=== PATIENT | female | born 1950 | race Caucasian/White ===

== ENCOUNTER 2018-09-20 00:08 | Inpatient (IN) | payer OTHER, SELFPAY ==
[2018-09-20] VITALS (10 sets, daily range): BP systolic 117–141; BP diastolic 72–84; PULSE 85–104; RESP 16–18; TEMP 36.2–37.1; O2SAT 94–98; BMI 32.5
--- NOTE | 2018-09-20 00:29 | DI.RAD.S_ITS ---
PROCEDURE: XR CHEST 1V INDICATIONS: NGT placement, bowel obstruction TECHNIQUE: One view of the chest was acquired. COMPARISON: None. FINDINGS: Surgical changes and devices: Esophagogastric tube has been placed with its tip just below the EG junction and its side port above the EG junction. Lungs and pleura: Lungs are clear. No pleural effusions or pneumothorax. Mediastinum: Mediastinal contours appear normal. Heart size is normal. Bones and chest wall: No suspicious bony lesions. Overlying soft tissues appear unremarkable. IMPRESSION: Esophagogastric tube is relatively high in its positioning with the side port above the EG junction. Recommend advancing approximately 10 cm. Dictated by: Malcolm Olmstead M.D. on 09/20/2018 at 8:51 Approved by: Malcolm Olmstead M.D. on 09/20/2018 at 8:52
[2018-09-20 00:54] LABS: Add Manual Diff / Slide Review NO; Basophils Absolute Auto 0 /uL (0-100); Basophils Percent Auto 0.2 % (0-2); Eosinophils Absolute Auto 0 /uL (0-450); Hemoglobin 13.9 g/dL (12.0-16.0); Lymphocytes Absolute Auto 1000 /uL (1100-4500); Lymphocytes Percent Auto 9.4 % (25-40); Mean Corpuscular HGB Conc 33.1 % (30-36); Mean Corpuscular Hemoglobin 27.9 PG (26-34); Mean Corpuscular Volume 84.5 fL (80-100); Monocytes Absolute Auto 400 /uL (0-900); Monocytes Percent Auto 3.8 % (3-14); Neutrophils Absolute Auto 9300 /uL (1500-7000); Neutrophils Percent Auto 86.6 % (50-75); Platelet Count 221 X10^3/uL (150-400); Red Blood Cell Count 4.97 X10^6/uL (4.0-5.2); Red Cell Distribution Width 14.5 % (11.6-14.8); White Blood Cell Count 10.8 X10^3/uL (4.5-11.0)
[2018-09-20] MEDS: SODIUM CHLORIDE 0.9% 1,000 ML 125 ML IV ×3 (01:00→16:12)
[2018-09-20 01:03] LABS: Alanine Aminotransferase 14 IU/L (9-52); Albumin 3.9 g/dL (3.5-5.0); Albumin Globulin Ratio 1.3 (1.0-2.8); Alkaline Phosphatase 78 U/L (38-126); Aspartate Aminotransferase 22 IU/L (14-36); BUN Creatinine Ratio 23.3 (6-22); Bilirubin Total 0.5 mg/dL (0.2-1.3); Blood Urea Nitrogen 14 mg/dL (7-17); Calcium 8.8 mg/dL (8.4-10.2); Carbon Dioxide 27 mmol/L (22-32); Chloride 105 mmol/L (98-107); Estimated Glomerular Filt Rate > 60.0 mL/min (>60); Globulin 3.1 g/dL (1.7-4.1); Glucose 140 mg/dL (80-110); HEMOLYSIS < 15 (0-50); Potassium 4.1 mmol/L (3.4-5.1); Sodium 140 mmol/L (137-145)
--- NOTE | 2018-09-20 01:04 | DI.ECHO.S_ITS ---
[facility] +---------+ : : [address] : : : : [id number] : : : : Phone: [phone] Echocardiogram Report + + :Name: DARIEN MARTINEZ Study Date: 09/20/2018 Height: 61 in : :[facility] Exam Location: [place] Weight: 165 lb : : Gender: Female BSA: 1.7 m2 : :: 1950 Age: 68 yrs BP: 140/80 mmHg: :Reason For Study: Exertional chest pressure and dyspnea : :Ordering Physician: Perry : :Hospitalist Performed By: Margy Page : :Referring: LUCA DAVIS : + + Interpretation Summary Normal sinus rhythm. Normal LV size, wall thickness, wall motion and LV systolic function. EF is 60-65%. Severe LA enlargement; otherwise normal chamber sizes. No significant valvular abnormalities. No prior study available for comparison. Procedure: A two-dimensional transthoracic echocardiogram with color flow and Doppler was performed. The study quality was technically adequate. There is no prior echocardiogram noted for this patient. The heart rate was 89-99 with frequent abnormal beats. Left Ventricle: The left ventricle is mildly dilated. Left ventricular wall thickness is normal. The ejection fraction is estimated to be 60-65%. The left ventricle is mildly hyperdynamic. There are no focal wall motion abnormalities. Diastolic function could not be accurately assessed due to unobtainable data. Right Ventricle: The right ventricle is mildly dilated. The right ventricular systolic function is normal. Atria: The left atrium is severely dilated. Right atrial size is normal. There is no Doppler evidence for an interatrial shunt. Mitral Valve: The mitral valve is normal in structure and function. There is mild mitral regurgitation. Aortic Valve: The aortic valve is trileaflet. The aortic valve opens well. No aortic regurgitation is present. Tricuspid Valve: The tricuspid valve is normal in structure and function. There is trace tricuspid regurgitation. The right ventricular systolic pressure is estimated to be at least 27 mmHg based on an estimated right atrial pressure of 8 mm Hg. Pulmonic Valve: The pulmonic valve is not well visualized. There is trace pulmonic regurgitation. Great Vessels: The aortic root is normal size. The ascending aorta is at the upper limits of normal in size. The pulmonary artery is not well visualized, but is probably normal size. The IVC is of normal diameter and collapses less than 50% with a sniff. This suggests a right atrial pressure of 8 mm Hg. Pericardium/ Pleura There is no pericardial effusion. There is no pleural effusion. MMode/2D Measurements & Calculations LVIDd: 5.2 cm LVOT diam: 2.2 cm LVIDs: 4.6 cm Ao root diam: 3.2 cm FS: 12.5 % asc Aorta Diam: 3.4 cm EPSS: 1.1 cm IVSd: 0.72 cm LVPWd: 0.60 cm LV naidu. diameter/BSA (cm/m^2): 3.0 LV sys. diameter/BSA (cm/m^2): 2.6 LA A2 area: 23.9 cm2 RA long axis: 5.2 cm LA A4 area: 26.6 cm2 RA area: 15.5 cm2 LA length (vol): 6.2 cm RA vol: 39.4 ml LA vol: 87.0 ml RA : 22.6 ml/m2 LA vol index: 50.0 ml/m2 IVC diam: 1.8 cm RVD1 (basal): 4.4 cm RVD2 (mid): 3.7 cm TAPSE: 2.3 cm Doppler Measurements & Calculations Ao V2 max: 148.1 cm/sec LVOT Max Juan Pablo: 92.7 cm/sec Ao V2 mean: 98.3 cm/sec LV V1 max P.4 mmHg Ao max P.8 mmHg LV V1 VTI: 15.8 cm Ao mean P.3 mmHg QI(I,D): 2.2 cm2 Ao V2 VTI: 26.5 cm QI(V,D): 2.4 cm2 sev ratio: 0.60 QI indexed to BSA (cm^2/m^2): 1.3 MV E max juan pablo: 68.7 cm/sec TR max juan pablo: 220.1 cm/sec MV A max juan pablo: 93.3 cm/sec TR max P.4 mmHg MV E/A: 0.74 PA V2 max: 83.4 cm/sec Lat Peak E' Juan Pablo: 14.4 cm/sec PA V2 mean: 60.1 cm/sec E/E' lat: 4.8 PA mean P.6 mmHg MV P1/2t: 36.5 msec PA Accel Time: 0.10 sec MV P1/2t max juan pablo: 69.4 cm/sec SV(LVOT): 59.6 ml MVA(P1/2t): 6.0 cm2 Electronically signed by: Shira Howard M.D. on Reading Physician:09/20/2018 11:12 AM
[2018-09-20 01:24] LABS: Troponin I < 0.012 ng/mL (0.01-0.034)
[2018-09-20] MEDS: ONDANSETRON 4 MG/2 ML INJ IV (02:25)
[2018-09-20] MEDS: HYDROMORPHONE 0.5 MG INJ IV ×2 (02:25→11:40)
--- NOTE | 2018-09-20 02:59 | PM.HP.1 ---
History of Present Illness Date Patient Seen: 09/20/18 Time Patient Seen: 00:30 Chief complaint: Small Bowel Obstruction Narrative: Ms. Stephani Pearson is a 60-year-old female patient with history significant for left nephrectomy hysterectomy and lumbosacral degenerative disc disease who presented to [facility] and [place] with progressive nausea vomiting. The patient reports developing nausea and vomiting the afternoon of 09/19/2018 that became progressively worse. She attributed her distress to the broccoli she ate and has been unable to keep down any food or fluids. She has developed mild abdominal pain with bloating and fullness. She describes the pain as a dull ache and pressure that is crampy at times. She reports taking MiraLax without benefit. She reports over the last 2 days she has had very small bowel movement and none today. She reports no hematemesis melena rectal bleeding. The patient reports no recent illness and denies fevers or chills, headaches or dizziness, nasal congestion or sore throat. She does endorse having multiple episodes of chest pressure when walking up hill with shortness of breath but none with normal activity that has developed over the last few weeks. She denies peripheral edema or orthopnea and otherwise has no shortness of breath cough or wheezing. Until today she has had no recent abdominal pain and no complaints of constipation or diarrhea. She reports no dysuria or vaginal bleeding or discharge. The patient was seen at [facility] emergency department of [place], upon arrival the patient had a blood pressure 134/90 with normal terminal with a temperature 37.1?, heart rate of 110, respirations of 18 and oxygen saturation 95%. Given the clinic included a CT scan which found, fluid dilated and fecalized proximal small bowel loops with abrupt transition point in the anterior left abdomen at the level of the umbilicus. Lab work obtained found white count of 9.5, hemoglobin of 15 and hematocrit of 45.8 and platelets of 230. With complaint of chest pressure on exertion a troponin was checked and found to be negative at less than 0.010. On chemistries her electrolytes within normal limits and had a nonfasting glucose 142. She has preserved renal function with a BUN of 17 and creatinine of 0.7. Her LFTs are within normal limits. And lipase is 27. Twelve lead EKG was obtained which found a normal sinus rhythm with a bifascicular block with right bundle branch block and left anterior fascicular block. She has no ST-elevation however there is inverted T-waves in V1 [address] Du called requesting to transfer the patient to [facility] as they have no surgical services. The patient is accepted with surgical consult for which Dr. Du spoke with Dr. Toribio the concrete vault maker surgeon who agreed to consult and agreed with transfer. The patient was given Reglan at the sending facility without benefit, she received Zofran during transport with marked improvement in her nausea. Patient History Medical History Blind left eye (Acute) DDD (degenerative disc disease), lumbosacral (Acute) Rosacea (Acute) Surgical History (Updated 09/20/18 @ 03:48 by LUIS Burdick) History of (Acute) History of hysterectomy (Acute) History of right radical nephrectomy (Acute) History of total right hip arthroplasty (Acute) Family History Father Alzheimer's dementia Mother Cancer Brother In good health Social History household members: friend(s) Smoking Status: Never smoker Family & Social History Family History Father Alzheimer's dementia Mother Cancer Brother In good health Social History: household members friend(s) Safety & Behavioral: Feels Safe in Current Yes Environment Been Physically Hurt or No Threatened By a Person Suicidal Ideation Description None Tobacco & Substance use: Smoking Status Never smoker alcohol intake frequency a few times a month Substance Use Type does not use Comment: The patient is single and lives with friends [place] [address]. Her parents are both and she has 2 brothers in good health. Smoking: Patient is a former smoking having smoked on and off 1/4 pack per day for 17 years. Alcohol: Patient consumes occasional alcohol. Substance use: Patient denies recreation pharmaceuticals herbal or use of cannabis products. Advanced directives direct discussion with the patient she wishes to be FULL CODE. She designates to be her surrogate decision maker. Meds Home Medications Medication Instructions Recorded Confirmed Type No Known Home Medications 09/20/18 09/20/18 History Allergies Allergy/AdvReac Type Severity Reaction Status Date / Time morphine AdvReac Mild JITTERY Verified 09/20/18 02:07 Review of Systems Review of Systems All systems reviewed & are unremarkable except as noted in HPI and below Exam Vital Signs (past 8 hours): - 09/20/18 00:15 09/20/18 02:00 Temperature 97.2 F L Pulse Rate 96 H Respiratory Rate 18 Blood Pressure 140/80 Pulse Oximetry 98 98 Oxygen Delivery Method Room Air Oxygen Flow Rate 0 Narrative Exam Narrative: GENERAL APPEARANCE: well developed, well nourished, in no acute distress. HEAD: Normocephalic, atraumatic, no scalp lesions. EYES: Blind left eye, dysconjugate gaze, pupils equal, round, reactive to light and accommodation, sclera non-icteric, unequal extraocular movement intact without nystagmus. EARS: normal external structures, no ear pain NOSE: NG to placed and right nare, sinuses non tender to percussion, no rhinorrhea ORAL CAVITY: mucosa moist without lesions or exudate, palate normal, tongue in midline. THROAT: normal, no erythema, no exudate, pharynx normal, uvula midline. NECK/THYROID: neck supple, no jugular venous distention, no carotid bruit, no thyromegaly, trachea midline. LYMPH NODES: no cervical or supraclavicular lymphadenopathy. SKIN: warm and dry, no suspicious lesions, no rashes, good turgor. HEART: regular rate and rhythm, S1-S2 without murmur, no rubs or gallops, brisk capillary refill, no edema LUNGS: clear to auscultation bilaterally, no coarseness crackles or wheezing, no cough present CHEST: Symmetrical movement, good tidal volume, no accessory muscle use, no pain to AP and lateral compression. ABDOMEN: Well-healed left abdominal surgical scar, soft, tympanic to percussion left upper quadrant dull in other quadrants, lower abdominal tenderness on palpation, no guarding or peritoneal signs, no organomegaly, no epigastric, flank or suprapubic tenderness, active bowel tones, no abdominal pain with straight leg lift BACK: nontender to palpation EXTREMITIES: moves all extremities, strength is 5/5 and symmetrical, no deformities or joint effusions. NEUROLOGIC: AAO x4, no focal neurologic deficits, cranial nerves II-XII grossly intact , motor strength normal upper and lower extremities, sensory exam intact to light touch, hearing grossly normal to speech. PSYCH: alert, cognitive function intact, good eye contact, appropriate with stable behavior Objective Labs Result Diagrams: 09/20/18 00:40 09/20/18 00:40 Labs: Laboratory Results - last 24 hr 09/20/18 09/20/18 09/20/18 00:40 00:40 00:40 WBC 10.8 RBC 4.97 Hgb 13.9 Hct 42.0 MCV 84.5 MCH 27.9 MCHC 33.1 RDW 14.5 Plt Count 221 Neut % (Auto) 86.6 H Lymph % (Auto) 9.4 L Vigo % (Auto) 3.8 Eos % (Auto) 0.0 L Baso % (Auto) 0.2 Neut # (Auto) 9300 H Lymph # (Auto) 1000 L Vigo # (Auto) 400 Eos # (Auto) 0 Baso # (Auto) 0 Sodium 140 Potassium 4.1 Chloride 105 Carbon Dioxide 27 BUN 14 Creatinine 0.60 Estimated GFR > 60.0 BUN/Creatinine Ratio 23.3 H Glucose 140 H Calcium 8.8 Total Bilirubin 0.5 AST 22 ALT 14 Alkaline Phosphatase 78 Troponin I < 0.012 Total Protein 7.0 Albumin 3.9 Globulin 3.1 Albumin/Globulin Ratio 1.3 Assessment & Plan Assessment & Plan narrative: The patient is transferred to [facility] from [facility] emergency department at Tuesday with small-bowel obstruction. 1. Acute small-bowel obstruction, present on admission. -patient with nausea vomiting today becoming progressively worse developing abdominal pain and bloating. -abdominal CT obtained at [facility] finds small-bowel obstruction with abrupt transition point in the anterior left abdomen at the level of the umbilicus. The CT also identifies distal colonic diverticulosis moderate in severity of the sigmoid and small hiatal hernia. -patient is NPO with normal saline infusing at 125 cc/hour -will monitor renal function as the patient has a single kidney status post nephrectomy. -Zofran 4 mg every 6 hours as needed for nausea -Dilaudid 0.5 mg every 4 hours as needed for pain. -NG tube to low intermittent suction. -we appreciate Dr. Helm surgical consult. 2. Acute chest discomfort, active -the patient's chest pressure develops in association with exertional dyspnea as stated when she does a strenuous walk uphill. -patient acknowledges difficulty going up stairs both related to her hip as well as dyspnea. -Twelve lead EKG finds bifascicular block and inverted T-waves in V1 2 and 3. -troponin at [facility] is negative will obtain repeat troponin -12 lead EKG and echocardiogram in the morning. -patient will need cardiac workup with stress test in absence of chest pain or significant findings may be followed up on outpatient basis. - Time Spent With Patient Time with patient: 25 - 35 minutes Scores GCS Continental coma scale eye opening: Spontaneous Dee coma scale verbal response: Orientated Dee coma scale motor response: Obey commands Dee coma scale total score: 15 Quality VTE Deep Vein Thrombosis/Pulmonary Embolism Present on Admission: No
--- NOTE | 2018-09-20 04:06 | PC.NURSE ---
Admit note NOC shift: Pt admitted via [facility] from [facility] Tuesday for an acute SBO secondary to adhesions. Pt AAOX3, received Zofran in flight for nausea, denies pain on admit. NG in place left nares will check KUB per xray. VSS. Pt NPO IVF's started. Ambulatory w/SBA to bathroom. Bernard BALP in to assess pt. Surgical consult in AM. NG placed to LIS per xray confirmed placement, ABD mildly distended w/hypoactive BT's. Denies nausea at this time.
[2018-09-20 06:04] LABS: Add Manual Diff / Slide Review NO; Basophils Absolute Auto 0 /uL (0-100); Basophils Percent Auto 0.1 % (0-2); Eosinophils Absolute Auto 0 /uL (0-450); Eosinophils Percent Auto 0.1 % (2-4); Hematocrit 41.4 % (36-46); Hemoglobin 13.7 g/dL (12.0-16.0); Lymphocytes Absolute Auto 1300 /uL (1100-4500); Lymphocytes Percent Auto 13.1 % (25-40); Mean Corpuscular HGB Conc 33.1 % (30-36); Mean Corpuscular Volume 84.8 fL (80-100); Monocytes Absolute Auto 500 /uL (0-900); Monocytes Percent Auto 5.3 % (3-14); Neutrophils Absolute Auto 8000 /uL (1500-7000); Neutrophils Percent Auto 81.4 % (50-75); Platelet Count 218 X10^3/uL (150-400); Red Blood Cell Count 4.88 X10^6/uL (4.0-5.2); Red Cell Distribution Width 14.5 % (11.6-14.8); White Blood Cell Count 9.8 X10^3/uL (4.5-11.0)
--- NOTE | 2018-09-20 10:29 | PM.PN.1 ---
Subjective Date Patient Seen: 09/20/18 Interval history: Patient is a 68-year-old female in prior good health admitted due to acute small bowel obstruction. She denies nausea, vomiting or worsening abdominal pain since admit overnight. Denies flatus. NG tube was placed but without drainage. Exam Vital Signs (past 8 hours): - 09/20/18 05:15 09/20/18 08:00 Temperature 98.3 F 98.2 F Pulse Rate 104 H 91 H Respiratory Rate 17 18 Blood Pressure 130/74 117/72 Pulse Oximetry 94 95 Oxygen Delivery Method Room Air Oxygen Flow Rate 0 Narrative Exam Narrative: GENERAL: Alert pleasant female in no acute distress HEENT: Normocephalic atraumatic CHEST: Clear to auscultation bilaterally. CARDIAC: Regular rate and rhythm. ABDOMEN: Mildly distended, bowel sounds present, soft and nontender EXTREMITIES: no edema. NEUROLOGICAL: no focal findings SKIN: Warm, dry, no petechiae, no rash Objective Labs Result Diagrams: 09/20/18 05:25 09/20/18 00:40 Labs: Laboratory Results - last 24 hr 09/20/18 09/20/18 09/20/18 00:40 00:40 00:40 WBC 10.8 RBC 4.97 Hgb 13.9 Hct 42.0 MCV 84.5 MCH 27.9 MCHC 33.1 RDW 14.5 Plt Count 221 Neut % (Auto) 86.6 H Lymph % (Auto) 9.4 L Ramsey % (Auto) 3.8 Eos % (Auto) 0.0 L Baso % (Auto) 0.2 Neut # (Auto) 9300 H Lymph # (Auto) 1000 L Ramsey # (Auto) 400 Eos # (Auto) 0 Baso # (Auto) 0 Sodium 140 Potassium 4.1 Chloride 105 Carbon Dioxide 27 BUN 14 Creatinine 0.60 Estimated GFR > 60.0 BUN/Creatinine Ratio 23.3 H Glucose 140 H Calcium 8.8 Total Bilirubin 0.5 AST 22 ALT 14 Alkaline Phosphatase 78 Troponin I < 0.012 Total Protein 7.0 Albumin 3.9 Globulin 3.1 Albumin/Globulin Ratio 1.3 09/20/18 05:25 WBC 9.8 RBC 4.88 Hgb 13.7 Hct 41.4 MCV 84.8 MCH 28.0 MCHC 33.1 RDW 14.5 Plt Count 218 Neut % (Auto) 81.4 H Lymph % (Auto) 13.1 L Ramsey % (Auto) 5.3 Eos % (Auto) 0.1 L Baso % (Auto) 0.1 Neut # (Auto) 8000 H Lymph # (Auto) 1300 Ramsey # (Auto) 500 Eos # (Auto) 0 Baso # (Auto) 0 Sodium Potassium Chloride Carbon Dioxide BUN Creatinine Estimated GFR BUN/Creatinine Ratio Glucose Calcium Total Bilirubin AST ALT Alkaline Phosphatase Troponin I Total Protein Albumin Globulin Albumin/Globulin Ratio Assessment & Plan Assessment & Plan narrative: The patient is transferred to [facility] from [facility] emergency department at [place] with small-bowel obstruction. 1. Acute small-bowel obstruction, likely due to adhesion, present on admission. -patient with stable vitals and laboratories -abdominal CT obtained at [facility] finds small-bowel obstruction with abrupt transition point in the anterior left abdomen at the level of the umbilicus. The CT also identifies distal colonic diverticulosis moderate in severity of the sigmoid and small hiatal hernia. -patient is NPO with normal saline infusing at 125 cc/hour -will monitor renal function as the patient has a single kidney status post nephrectomy. -Zofran 4 mg every 6 hours as needed for nausea -Dilaudid 0.5 mg every 4 hours as needed for pain. -NG tube to low intermittent suction, however can possibly remove if no drainage. -we appreciate Dr. Helm surgical consult. 2. Acute chest discomfort, active -patient reported 2 week history of a couple episodes of chest discomfort with exertion when she does a strenuous walk uphill. -patient acknowledges difficulty going up stairs both related to her hip as well as dyspnea. -no significant CAD risk factors such as family history, diabetes, hypertension, smoking (quit 30-40 years ago) -Twelve lead EKG finds bifascicular block and inverted T-waves in V1 2 and 3. -troponin at [facility] and here both negative -transthoracic echo ordered -patient will need outpatient cardiac workup with stress test -patient will need preop cardiac consultation if she requires surgery during this admission Continue inpatient management of acute small-bowel obstruction Quality VTE Deep Vein Thrombosis/Pulmonary Embolism Present on Admission: No
--- NOTE | 2018-09-20 10:36 | P.PN_ITS ---
Subjective Date Patient Seen: 09/20/18 Interval history: Patient is a 68-year-old female in prior good health admitted due to acute small bowel obstruction. She denies nausea, vomiting or worsening abdominal pain since admit overnight. Denies flatus. NG tube was placed but without drainage. Exam Vital Signs (past 8 hours): - 09/20/18 05:15 09/20/18 08:00 Temperature 98.3 F 98.2 F Pulse Rate 104 H 91 H Respiratory Rate 17 18 Blood Pressure 130/74 117/72 Pulse Oximetry 94 95 Oxygen Delivery Method Room Air Oxygen Flow Rate 0 Narrative Exam Narrative: GENERAL: Alert pleasant female in no acute distress HEENT: Normocephalic atraumatic CHEST: Clear to auscultation bilaterally. CARDIAC: Regular rate and rhythm. ABDOMEN: Mildly distended, bowel sounds present, soft and nontender EXTREMITIES: no edema. NEUROLOGICAL: no focal findings SKIN: Warm, dry, no petechiae, no rash Objective Labs Result Diagrams: 09/20/18 05:25 09/20/18 00:40 Labs: Laboratory Results - last 24 hr 09/20/18 09/20/18 09/20/18 00:40 00:40 00:40 WBC 10.8 RBC 4.97 Hgb 13.9 Hct 42.0 MCV 84.5 MCH 27.9 MCHC 33.1 RDW 14.5 Plt Count 221 Neut % (Auto) 86.6 H Lymph % (Auto) 9.4 L Carroll % (Auto) 3.8 Eos % (Auto) 0.0 L Baso % (Auto) 0.2 Neut # (Auto) 9300 H Lymph # (Auto) 1000 L Carroll # (Auto) 400 Eos # (Auto) 0 Baso # (Auto) 0 Sodium 140 Potassium 4.1 Chloride 105 Carbon Dioxide 27 BUN 14 Creatinine 0.60 Estimated GFR > 60.0 BUN/Creatinine Ratio 23.3 H Glucose 140 H Calcium 8.8 Total Bilirubin 0.5 AST 22 ALT 14 Alkaline Phosphatase 78 Troponin I < 0.012 Total Protein 7.0 Albumin 3.9 Globulin 3.1 Albumin/Globulin Ratio 1.3 09/20/18 05:25 WBC 9.8 RBC 4.88 Hgb 13.7 Hct 41.4 MCV 84.8 MCH 28.0 MCHC 33.1 RDW 14.5 Plt Count 218 Neut % (Auto) 81.4 H Lymph % (Auto) 13.1 L Carroll % (Auto) 5.3 Eos % (Auto) 0.1 L Baso % (Auto) 0.1 Neut # (Auto) 8000 H Lymph # (Auto) 1300 Carroll # (Auto) 500 Eos # (Auto) 0 Baso # (Auto) 0 Sodium Potassium Chloride Carbon Dioxide BUN Creatinine Estimated GFR BUN/Creatinine Ratio Glucose Calcium Total Bilirubin AST ALT Alkaline Phosphatase Troponin I Total Protein Albumin Globulin Albumin/Globulin Ratio Assessment & Plan Assessment & Plan narrative: The patient is transferred to [facility] from [facility] emergency department at [place] with small-bowel obstruction. 1. Acute small-bowel obstruction, likely due to adhesion, present on admission. -patient with stable vitals and laboratories -abdominal CT obtained at [facility] finds small-bowel obstruction with abrupt transition point in the anterior left abdomen at the level of the umbilicus. The CT also identifies distal colonic diverticulosis moderate in severity of the sigmoid and small hiatal hernia. -patient is NPO with normal saline infusing at 125 cc/hour -will monitor renal function as the patient has a single kidney status post nephrectomy. -Zofran 4 mg every 6 hours as needed for nausea -Dilaudid 0.5 mg every 4 hours as needed for pain. -NG tube to low intermittent suction, however can possibly remove if no dra mckenna. -we appreciate Dr. Helm surgical consult. 2. Acute chest discomfort, active -patient reported 2 week history of a couple episodes of chest discomfort with exertion when she does a strenuous walk uphill. -patient acknowledges difficulty going up stairs both related to her hip as well as dyspnea. -no significant CAD risk factors such as family history, diabetes, hypertension, smoking (quit 30-40 years ago) -Twelve lead EKG finds bifascicular block and inverted T-waves in V1 2 and 3. -troponin at [facility] and here both negative -transthoracic echo ordered -patient will need outpatient cardiac workup with stress test -patient will need preop cardiac consultation if she requires surgery during this admission Continue inpatient management of acute small-bowel obstruction Quality VTE Deep Vein Thrombosis/Pulmonary Embolism Present on Admission: No
--- NOTE | 2018-09-20 10:58 | CM.DANOTE ---
DCP: Case received, EMR reviewed and met with patient. Introduced self and role. Baseline health history and living situation obtained from patient. DCP template assessment completed with information currently available. Patient is a 68 year old female who admitted early this morning to the care of the hospitalist team. PCP: Dr. Reid. Payer: confirmed: [facility]. Patient came to the hospital secondary to nausea, vomiting, and abdominal pain. She holds diagnosis of small bowel obstruction. Patient has history of left nephrectomy, as well as disc disease. She resides in [place]. Met with patient. Alert and oriented, has an NG tube in place. She stated, since I have had this tube, I am starting to feel better. Patient lives alone in [place], but she stated that she does have some friends that could help her out. She has a son named Feliz, who is now residing in [place]. She has another son that will be moving to [place]. She stated, she has never had anything like this before. Confirmed that her primary doctor is Dr. Reid, in Tuesday. P: DCP to continue to follow closely, and be available for any resources at discharge. It is unclear at this time if patient will be having surgery. Arina Sargent RN/Call Specialist
--- NOTE | 2018-09-20 11:12 | PC.NURSE ---
Pts NG tube to LIS, with a clear/bile drainage in chamber. Pt denies abdominal pain and has not needed pain medication thus far. She is A&Ox3, ivf infusing to l.ac. Checked placement of NG tube with air and properly in place. Pt is resting comfortably.
--- NOTE | 2018-09-20 12:23 | P.CONS_ITS ---
History of Present Illness Date Patient Seen: 09/20/18 Time Patient Seen: 12:18 Chief complaint: Small Bowel Obstruction Reason for consult: SBO Narrative: 68yo F with remote history of hysterectomy with first SBO. Vitals and labs not concerning for bowel compromise. Seen at [facility] and transferred here for higher level of care. NGT was placed prior to transfer and CXR here indicates it is above GEJ and should be advanced. No record of this and pt does not recall any manipulation since placement. Minimal brownish gastric output in cannister currently. Advanced 10cm at bedside and had small volume but immediate increase in output. Pt has felt better through the morning, abd soft with minimal distension, no nausea. Of note, she is undergoing a cardiac workup currently due to symptoms noted on ROS by medicine team. While she does not currently need surgery and hopefully will resolve without further intervention, may need cardiac eval should we go down that road. [facility] Medical History Blind left eye (Acute) DDD (degenerative disc disease), lumbosacral (Acute) Rosacea (Acute) Surgical History History of (Acute) History of hysterectomy (Acute) History of right radical nephrectomy (Acute) History of total right hip arthroplasty (Acute) Family History Father Alzheimer's dementia Mother Cancer Brother In good health Social History household members: friend(s) Smoking Status: Never smoker Family History Father Alzheimer's dementia Mother Cancer Brother In good health Social History household members: friend(s) Smoking Status: Never smoker Meds Home Medications Medication Instructions Recorded Confirmed Type No Known Home Medications 09/20/18 09/20/18 History Allergies Allergy/AdvReac Type Severity Reaction Status Date / Time morphine AdvReac Mild JITTERY Verified 09/20/18 02:07 Review of Systems Constitutional Constitutional: Reports as per HPI Exam Vital Signs (past 8 hours): - 09/20/18 05:15 09/20/18 08:00 09/20/18 10:37 Temperature 98.3 F 98.2 F Pulse Rate 104 H 91 H Respiratory Rate 17 18 Blood Pressure 130/74 117/72 Pulse Oximetry 94 95 98 09/20/18 11:36 Temperature 98.7 F Pulse Rate 91 H Respiratory Rate 16 Blood Pressure 128/73 Pulse Oximetry 95 Oxygen Delivery Method Room Air Oxygen Flow Rate 0 Narrative Exam Narrative: AAO, NAD, overweight female EOMI, MMM, no scleral icterus unlabored RA NGT to LIWS with low volume gastric contents in cannister soft, nt, minimal distension MAEW visible skin dry and intact Objective Labs Result Diagrams: 09/20/18 05:25 09/20/18 00:40 Labs: Laboratory Results - last 24 hr 09/20/18 09/20/18 09/20/18 00:40 00:40 00:40 WBC 10.8 RBC 4.97 Hgb 13.9 Hct 42.0 MCV 84.5 MCH 27.9 MCHC 33.1 RDW 14.5 Plt Count 221 Neut % (Auto) 86.6 H Lymph % (Auto) 9.4 L [place] % (Auto) 3.8 Eos % (Auto) 0.0 L Baso % (Auto) 0.2 Neut # (Auto) 9300 H Lymph # (Auto) 1000 L [place] # (Auto) 400 Eos # (Auto) 0 Baso # (Auto) 0 Sodium 140 Potassium 4.1 Chloride 105 Carbon Dioxide 27 BUN 14 Creatinine 0.60 Estimated GFR > 60.0 BUN/Creatinine Ratio 23.3 H Glucose 140 H Calcium 8.8 Total Bilirubin 0.5 AST 22 ALT 14 Alkaline Phosphatase 78 Troponin I < 0.012 Total Protein 7.0 Albumin 3.9 Globulin 3.1 Albumin/Globulin Ratio 1.3 09/20/18 05:25 WBC 9.8 RBC 4.88 Hgb 13.7 Hct 41.4 MCV 84.8 MCH 28.0 MCHC 33.1 RDW 14.5 Plt Count 218 Neut % (Auto) 81.4 H Lymph % (Auto) 13.1 L [place] % (Auto) 5.3 Eos % (Auto) 0.1 L Baso % (Auto) 0.1 Neut # (Auto) 8000 H Lymph # (Auto) 1300 [place] # (Auto) 500 Eos # (Auto) 0 Baso # (Auto) 0 Sodium Potassium Chloride Carbon Dioxide BUN Creatinine Estimated GFR BUN/Creatinine Ratio Glucose Calcium Total Bilirubin AST ALT Alkaline Phosphatase Troponin I Total Protein Albumin Globulin Albumin/Globulin Ratio Assessment & Plan (1) SBO (small bowel obstruction): Current visit: Yes Status: Acute Assessment & Plan narrative: - SBO with no evidence of bowel compromise --> NGT for decompression --> NPO, MIVFs, ok for ice chips and sips of water - ambulate prn, ok to clamp tube for this - discussed anticipated course for next few days and branching plans should she not improve with decompression alone, all current questions answered - appreciate diligent medicine workup
[2018-09-21] VITALS (9 sets, daily range): BP systolic 130–148; BP diastolic 68–91; PULSE 75–91; RESP 16–20; TEMP 36.6–37; O2SAT 95–97
[2018-09-21] MEDS: SODIUM CHLORIDE 0.9% 1,000 ML 125 ML IV (00:37)
[2018-09-21] MEDS: HYDROMORPHONE 0.5 MG INJ IV (03:32)
[2018-09-21 05:54] LABS: Add Manual Diff / Slide Review NO; Basophils Absolute Auto 0 /uL (0-100); Basophils Percent Auto 0.2 % (0-2); Eosinophils Absolute Auto 100 /uL (0-450); Eosinophils Percent Auto 1.1 % (2-4); Hematocrit 36.7 % (36-46); Hemoglobin 12.2 g/dL (12.0-16.0); Lymphocytes Absolute Auto 1500 /uL (1100-4500); Lymphocytes Percent Auto 19.8 % (25-40); Mean Corpuscular HGB Conc 33.4 % (30-36); Mean Corpuscular Hemoglobin 28.5 PG (26-34); Mean Corpuscular Volume 85.4 fL (80-100); Monocytes Absolute Auto 600 /uL (0-900); Monocytes Percent Auto 7.4 % (3-14); Neutrophils Absolute Auto 5600 /uL (1500-7000); Neutrophils Percent Auto 71.5 % (50-75); Platelet Count 171 X10^3/uL (150-400); Red Blood Cell Count 4.29 X10^6/uL (4.0-5.2); Red Cell Distribution Width 14.6 % (11.6-14.8); White Blood Cell Count 7.8 X10^3/uL (4.5-11.0)
[2018-09-21 06:01] LABS: Blood Urea Nitrogen 14 mg/dL (7-17); Carbon Dioxide 28 mmol/L (22-32); Chloride 109 mmol/L (98-107); Estimated Glomerular Filt Rate > 60.0 mL/min (>60); Glucose 84 mg/dL (80-110); HEMOLYSIS < 15 (0-50); Potassium 3.8 mmol/L (3.4-5.1); Sodium 142 mmol/L (137-145)
[2018-09-21] MEDS: ENOXAPARIN 40 MG/0.4 ML SYRINGE SUBCUT (09:27)
--- NOTE | 2018-09-21 12:11 | PM.PN.1 ---
Subjective Date Patient Seen: 09/21/18 Interval history: Patient is a 68-year-old female in prior good health admitted due to acute small bowel obstruction. Patient notes improvement in abdominal pain and distension. Had 150 cc bilious output overnight from NG tube. Had a couple small bowel movements since last night and also states passing flatus. Exam Vital Signs (past 8 hours): - 09/21/18 04:18 09/21/18 08:00 09/21/18 09:20 Temperature 98.6 F 97.8 F Pulse Rate 91 H 79 Respiratory Rate 16 16 Blood Pressure 133/74 137/75 Pulse Oximetry 95 96 96 Oxygen Delivery Method Room Air Oxygen Flow Rate 0 Narrative Exam Narrative: GENERAL: Alert pleasant female in no acute distress HEENT: Normocephalic atraumatic CHEST: Clear to auscultation bilaterally. CARDIAC: Regular rate and rhythm. ABDOMEN: Mildly distended, bowel sounds not present, no tenderness EXTREMITIES: no edema. NEUROLOGICAL: no focal findings SKIN: Warm, dry, no petechiae, no rash Objective Labs Result Diagrams: 09/21/18 05:22 09/21/18 05:22 Labs: Laboratory Results - last 24 hr 09/21/18 09/21/18 05:22 05:22 WBC 7.8 RBC 4.29 Hgb 12.2 Hct 36.7 MCV 85.4 MCH 28.5 MCHC 33.4 RDW 14.6 Plt Count 171 Neut % (Auto) 71.5 Lymph % (Auto) 19.8 L [place] % (Auto) 7.4 Eos % (Auto) 1.1 L Baso % (Auto) 0.2 Neut # (Auto) 5600 Lymph # (Auto) 1500 [place] # (Auto) 600 Eos # (Auto) 100 Baso # (Auto) 0 Sodium 142 Potassium 3.8 Chloride 109 H Carbon Dioxide 28 BUN 14 Creatinine 0.70 Estimated GFR > 60.0 BUN/Creatinine Ratio 20.0 Glucose 84 Calcium 8.0 L Assessment & Plan Assessment & Plan narrative: The patient is transferred to [facility] from [facility] emergency department at Tuesday with small-bowel obstruction. 1. Acute small-bowel obstruction, likely due to adhesion, present on admission. -patient with clinical improvement passing flatus and having BM though still appears distended, remains with normal vitals and labs -abdominal CT obtained at [facility] finds small-bowel obstruction with abrupt transition point in the anterior left abdomen at the level of the umbilicus. The CT also identifies distal colonic diverticulosis moderate in severity of the sigmoid and small hiatal hernia. -continue NPO status with normal saline infusing at 125 cc/hour -monitor renal function as the patient has a single kidney status post nephrectomy. -Zofran 4 mg every 6 hours as needed for nausea -Dilaudid 0.5 mg every 4 hours as needed for pain. -NG tube to low intermittent suction -we appreciate Dr. Helm surgical consult and await further recommendations 2. Acute chest discomfort, active -patient reported 2 week history of a couple episodes of chest discomfort with exertion when she does a strenuous walk uphill. -patient acknowledges difficulty going up stairs both related to her hip as well as dyspnea. -no significant CAD risk factors such as family history, diabetes, hypertension, smoking (quit 30-40 years ago) -Twelve lead EKG finds bifascicular block and inverted T-waves in V1 2 and 3. -troponin at [facility] and here both negative -transthoracic echo is normal -patient informed she will need outpatient cardiac workup with stress test -patient will need preop cardiac consultation if she requires surgery during this admission Continue inpatient management of acute small-bowel obstruction Quality VTE Deep Vein Thrombosis/Pulmonary Embolism Present on Admission: No
--- NOTE | 2018-09-21 12:17 | P.PN_ITS ---
Subjective Date Patient Seen: 09/21/18 Interval history: Patient is a 68-year-old female in prior good health admitted due to acute small bowel obstruction. Patient notes improvement in abdominal pain and distension. Had 150 cc bilious output overnight from NG tube. Had a couple small bowel movements since last night and also states passing flatus. Exam Vital Signs (past 8 hours): - 09/21/18 04:18 09/21/18 08:00 09/21/18 09:20 Temperature 98.6 F 97.8 F Pulse Rate 91 H 79 Respiratory Rate 16 16 Blood Pressure 133/74 137/75 Pulse Oximetry 95 96 96 Oxygen Delivery Method Room Air Oxygen Flow Rate 0 Narrative Exam Narrative: GENERAL: Alert pleasant female in no acute distress HEENT: Normocephalic atraumatic CHEST: Clear to auscultation bilaterally. CARDIAC: Regular rate and rhythm. ABDOMEN: Mildly distended, bowel sounds not present, no tenderness EXTREMITIES: no edema. NEUROLOGICAL: no focal findings SKIN: Warm, dry, no petechiae, no rash Objective Labs Result Diagrams: 09/21/18 05:22 09/21/18 05:22 Labs: Laboratory Results - last 24 hr 09/21/18 09/21/18 05:22 05:22 WBC 7.8 RBC 4.29 Hgb 12.2 Hct 36.7 MCV 85.4 MCH 28.5 MCHC 33.4 RDW 14.6 Plt Count 171 Neut % (Auto) 71.5 Lymph % (Auto) 19.8 L [place] % (Auto) 7.4 Eos % (Auto) 1.1 L Baso % (Auto) 0.2 Neut # (Auto) 5600 Lymph # (Auto) 1500 [place] # (Auto) 600 Eos # (Auto) 100 Baso # (Auto) 0 Sodium 142 Potassium 3.8 Chloride 109 H Carbon Dioxide 28 BUN 14 Creatinine 0.70 Estimated GFR > 60.0 BUN/Creatinine Ratio 20.0 Glucose 84 Calcium 8.0 L Assessment & Plan Assessment & Plan narrative: The patient is transferred to [facility] from [facility] emergency department at Tuesday with small-bowel obstruction. 1. Acute small-bowel obstruction, likely due to adhesion, present on admission. -patient with clinical improvement passing flatus and having BM though still appears distended, remains with normal vitals and labs -abdominal CT obtained at [facility] finds small-bowel obstruction with abrupt transition point in the anterior left abdomen at the level of the umbilicus. The CT also identifies distal colonic diverticulosis moderate in severity of the sigmoid and small hiatal hernia. -continue NPO status with normal saline infusing at 125 cc/hour -monitor renal function as the patient has a single kidney status post nephrec willy. -Zofran 4 mg every 6 hours as needed for nausea -Dilaudid 0.5 mg every 4 hours as needed for pain. -NG tube to low intermittent suction -we appreciate Dr. Helm surgical consult and await further recommendations 2. Acute chest discomfort, active -patient reported 2 week history of a couple episodes of chest discomfort with exertion when she does a strenuous walk uphill. -patient acknowledges difficulty going up stairs both related to her hip as well as dyspnea. -no significant CAD risk factors such as family history, diabetes, hypertension, smoking (quit 30-40 years ago) -Twelve lead EKG finds bifascicular block and inverted T-waves in V1 2 and 3. -troponin at [facility] and here both negative -transthoracic echo is normal -patient informed she will need outpatient cardiac workup with stress test -patient will need preop cardiac consultation if she requires surgery during thi s admission Continue inpatient management of acute small-bowel obstruction Quality VTE Deep Vein Thrombosis/Pulmonary Embolism Present on Admission: No
--- NOTE | 2018-09-21 15:39 | PM.PN.1 ---
Subjective Date Patient Seen: 09/21/18 Time Patient Seen: 12:20 Interval history: Doing well, feels much better today. No pain, no nausea; NGT on LIWS with moderate bilious output. Abd soft. Some flatus and two very small stools passed. Has been up walking only by bed. Exam Vital Signs (past 8 hours): - 09/21/18 08:00 09/21/18 09:20 09/21/18 12:00 Temperature 97.8 F 98.1 F Pulse Rate 79 81 Respiratory Rate 16 16 Blood Pressure 137/75 147/91 H Pulse Oximetry 96 96 97 Oxygen Delivery Method Room Air Oxygen Flow Rate 0 Narrative Exam Narrative: AAO, NAD, obese female EOMI, MMM, no scleral icterus NGT to LIWS, bilious output in cannister unlabored RA soft, nt, minimal distension MAEW visible skin dry and intact Objective Labs Result Diagrams: 09/21/18 05:22 09/21/18 05:22 Labs: Laboratory Results - last 24 hr 09/21/18 09/21/18 05:22 05:22 WBC 7.8 RBC 4.29 Hgb 12.2 Hct 36.7 MCV 85.4 MCH 28.5 MCHC 33.4 RDW 14.6 Plt Count 171 Neut % (Auto) 71.5 Lymph % (Auto) 19.8 L [place] % (Auto) 7.4 Eos % (Auto) 1.1 L Baso % (Auto) 0.2 Neut # (Auto) 5600 Lymph # (Auto) 1500 [place] # (Auto) 600 Eos # (Auto) 100 Baso # (Auto) 0 Sodium 142 Potassium 3.8 Chloride 109 H Carbon Dioxide 28 BUN 14 Creatinine 0.70 Estimated GFR > 60.0 BUN/Creatinine Ratio 20.0 Glucose 84 Calcium 8.0 L Assessment & Plan Assessment & Plan narrative: - doing well, encouraging bowel progress --> clamp NGT, not full clear tray but ok to be more liberal; will replace to LIWS if becomes distended or nauseated - ambulate, OOB Quality VTE Deep Vein Thrombosis/Pulmonary Embolism Present on Admission: No
--- NOTE | 2018-09-21 23:43 | PC.NURSE ---
Patient alert/oriented. Denies pain/discomfort. Reports passing flatus. Taking sips of water, denies any nausea. NG is clamped. IV fluids infusing per orders. Ambulated to bathroom indep. Call light within reach.
[2018-09-22] VITALS (10 sets, daily range): BP systolic 122–144; BP diastolic 51–87; PULSE 65–84; RESP 15–20; TEMP 36.8–37.2; O2SAT 95–99
[2018-09-22] MEDS: SODIUM CHLORIDE 0.9% 1,000 ML 125 ML IV ×2 (02:06→10:10)
--- NOTE | 2018-09-22 08:51 | PM.PN.1 ---
Subjective Date Patient Seen: 09/22/18 Time Patient Seen: 08:51 Interval history: She is seen today to follow-up her small-bowel obstruction. NG tube has been clamped since yesterday. There are no new labs this morning. Surgery is also following her. Exam Vital Signs (past 8 hours): - 09/22/18 04:00 09/22/18 07:35 Temperature 98.5 F 98.2 F Pulse Rate 72 73 Respiratory Rate 18 16 Blood Pressure 133/74 137/54 L Pulse Oximetry 97 99 Oxygen Delivery Method Room Air Oxygen Flow Rate 0 Narrative Exam Narrative: She is alert, oriented x3, walking around the room, in no apparent distress. The NG tube is clamped and still present in the right nostril. Heart is regular rate and rhythm without murmur. Lungs are clear to auscultation bilaterally. Abdomen is soft on the lower aspect and firm on the upper abdomen. She is mildly tender. Bowel sounds are very very soft. There is no ankle edema. Objective Labs Result Diagrams: 09/21/18 05:22 09/21/18 05:22 Assessment & Plan Assessment & Plan narrative: The patient was admitted to [facility] from [facility] emergency department at Tuesday with a small-bowel obstruction. 1. Acute small-bowel obstruction, likely due to adhesion, present on admission. -patient with clinical improvement passing flatus and having BM though still appears distended, remains with normal vitals and labs -remove NG tube per General surgery. -Per abdominal film done today. IMPRESSION: Single, short segment of mild small bowel dilatation with associated air-fluid level in the left midabdomen which may represent early small bowel obstruction versus ileus. Recommend continued clinical surveillance with followup imaging as needed. -abdominal CT obtained at [facility] finds small-bowel obstruction with abrupt transition point in the anterior left abdomen at the level of the umbilicus. The CT also identifies distal colonic diverticulosis moderate in severity of the sigmoid and small hiatal hernia. -continue NPO status with normal saline infusing at 125 cc/hour -monitor renal function as the patient has a single kidney status post nephrectomy. -Zofran 4 mg every 6 hours as needed for nausea -Dilaudid 0.5 mg every 4 hours as needed for pain. -NG tube to low intermittent suction -continue nothing by mouth and NG tube status until cleared by surgery. 2. Acute chest discomfort, active -patient reported 2 week history of a couple episodes of chest discomfort with exertion when she does a strenuous walk uphill. -patient acknowledges difficulty going up stairs both related to her hip as well as dyspnea. -no significant CAD risk factors such as family history, diabetes, hypertension, smoking (quit 30-40 years ago) -Twelve lead EKG finds bifascicular block and inverted T-waves in V1 2 and 3. -troponin at [facility] and here both negative -transthoracic echo is normal -patient informed she will need outpatient cardiac workup with stress test -patient will need preop cardiac consultation if she requires surgery during this admission Continue inpatient management of acute small-bowel obstruction Quality VTE Deep Vein Thrombosis/Pulmonary Embolism Present on Admission: No
--- NOTE | 2018-09-22 08:56 | DI.RAD.S_ITS ---
PROCEDURE: XR ABDOMEN MIN 2V INDICATIONS: SBO TECHNIQUE: 2 views of the abdomen were acquired. COMPARISON: None. FINDINGS: Surgical changes and devices: Nasogastric tube is in place with the distal tip projecting in the right upper abdomen in the expected location of the distal gastric antrum. The side port is below the gastroesophageal junction. Surgical clips in the left upper abdomen and left pelvis are present. Status post left total hip arthroplasty. Bowel: No pneumoperitoneum. There is a short segment of mildly dilated small bowel in the left mid abdomen measuring up to 4 cm in diameter on the supine view and demonstrates small air-fluid level on the upright view. Remainder of the visualized bowel gas pattern appears unremarkable. Small amount of gas and fecal material near the rectum. Soft tissues: No masses; visualized solid organ contours appear normal in size. No suspicious abdominal calcifications. Bones: No suspicious bony abnormalities. IMPRESSION: Single, short segment of mild small bowel dilatation with associated air-fluid level in the left midabdomen which may represent early small bowel obstruction versus ileus. Recommend continued clinical surveillance with followup imaging as needed. Dictated by: Rivas Hylton M.D. on 09/22/2018 at 9:20 Approved by: Rivas Hylton M.D. on 09/22/2018 at 9:25
[2018-09-22] MEDS: ENOXAPARIN 40 MG/0.4 ML SYRINGE SUBCUT (10:04)
--- NOTE | 2018-09-22 16:41 | PM.PN.1 ---
Subjective Date Patient Seen: 09/22/18 Time Patient Seen: 16:42 Interval history: The patient was seen earlier today and again this evening. She has been have a lot of crampy gassy pain. It is relieved with the passage of flatus. She says she walks and then sits on the toilet and is able to pass some flatus eventually which relieves her symptoms. She has not been vomiting. They brought her full tray of liquids for lunch and she just could not take all of that she said Exam Vital Signs (past 8 hours): - 09/22/18 10:05 09/22/18 13:20 09/22/18 15:30 Temperature 98.8 F 98.4 F Pulse Rate 73 65 Respiratory Rate 16 20 Blood Pressure 128/51 L 141/61 H Pulse Oximetry 99 95 99 Oxygen Delivery Method Room Air Oxygen Flow Rate 0 Narrative Exam Narrative: Patient's lungs are clear. No rales or rhonchi. Abdomen is protuberant but soft. No hernias appreciated. No masses. No obvious tenderness with palpation though she says it is a little sore when I push in the suprapubic area. Objective Labs Result Diagrams: 09/21/18 05:22 09/21/18 05:22 Assessment & Plan Assessment & Plan narrative: Small-bowel obstruction: Seems to be resolving though slowly. Her x-rays were reviewed this morning and they show positive gas now. No particular distention. Her only abdominal operations have been hysterectomy and a kidney resection after elective . She does not quite know how all of the a complication from her procedure led to her kidney resection. I would like to switch her to some sugar containing fluid in order to to [place] crease the use of her protein stores for energy. Courage her to continue to walk. We will offer her a suppository to see if we can stimulate good colonic function. Will continue DVT prophylaxis with Lovenox. Quality VTE Deep Vein Thrombosis/Pulmonary Embolism Present on Admission: No
[2018-09-22] MEDS: DEXTROSE 5%-0.45% NS 1,000 ML 100 ML IV (17:04)
[2018-09-22] MEDS: BISACODYL 10 MG SUPP PR (17:05)
[2018-09-23] VITALS (9 sets, daily range): BP systolic 126–151; BP diastolic 68–96; PULSE 63–85; RESP 16–18; TEMP 36.8–37.2; O2SAT 97–99
[2018-09-23] MEDS: DEXTROSE 5%-0.45% NS 1,000 ML 100 ML IV (03:05)
--- NOTE | 2018-09-23 07:00 | PC.NURSE ---
Pt is doing great. Frequently ambulating the halls. No complaints of pain. Had a medium BM, greasy/mucoidy/ but formed. Greenish brown in color. Passing gas. Bowel tones +. No nausea. IVF running as ordered. Tolerating clear liquids
[2018-09-23] MEDS: ENOXAPARIN 40 MG/0.4 ML SYRINGE SUBCUT (08:33)
--- NOTE | 2018-09-23 08:52 | P.PN_ITS ---
Subjective Date Patient Seen: 09/23/18 Time Patient Seen: 08:51 Interval history: Seen today to follow up her SBO. She is eating well, with a diet advanced per General surgery. Without chest pain or other symptoms. Exam Vital Signs (past 8 hours): - 09/23/18 05:25 09/23/18 08:08 Temperature 99.0 F Pulse Rate 71 Respiratory Rate 16 Blood Pressure 148/74 H Pulse Oximetry 97 97 Oxygen Delivery Method Room Air Oxygen Flow Rate 0 Narrative Exam Narrative: She is alert and oriented, in no apparent distress. Heart is regular rate and rhythm without murmur. Lungs are clear to auscultation bilaterally. Abdomen is soft, bowel sounds positive, nontender, no organomegaly. No NG tube in place now. A Extremities have no ankle edema. Objective Labs Result Diagrams: 09/21/18 05:22 09/21/18 05:22 Assessment & Plan Assessment & Plan narrative: The patient was admitted to [facility] from [facility] emergency department at [place] with a small-bowel obstruction. 1. Acute small-bowel obstruction, likely due to adhesion, present on admission. -Apparently resolved. Being challenged with regular food today with plans for discharge home tomorrow if does well. 2. Acute chest discomfort, active -patient reported 2 week history of a couple episodes of chest discomfort with exertion when she does a strenuous walk uphill. -patient acknowledges difficulty going up stairs both related to her hip as well as dyspnea. -no significant CAD risk factors such as family history, diabetes, hypertension, smoking (quit 30-40 years ago) -Twelve lead EKG finds bifascicular block and inverted T-waves in V1 2 and 3. -troponin at [facility] and here both negative -transthoracic echo is normal -patient informed she will need outpatient cardiac workup with stress test Quality VTE Deep Vein Thrombosis/Pulmonary Embolism Present on Admission: No
--- NOTE | 2018-09-23 12:05 | PM.PN.1 ---
Subjective Date Patient Seen: 09/23/18 Time Patient Seen: 12:05 Interval history: The patient is here attending followed for bowel obstruction. This is presumed adhesive in nature. After suppository yesterday she had a bowel movement and feels much better. She continues to pass flatus. She is tolerating clear liquids without difficulty and would like to be advanced in her diet. She actually asked about going home. Exam Vital Signs (past 8 hours): - 09/23/18 05:25 09/23/18 08:08 09/23/18 09:00 Temperature 99.0 F 98.6 F Pulse Rate 71 63 Respiratory Rate 16 16 Blood Pressure 148/74 H 138/73 Pulse Oximetry 97 97 99 Oxygen Delivery Method Room Air Oxygen Flow Rate 0 Narrative Exam Narrative: Lungs are clear to auscultation. No rales or rhonchi. Good air movement into the bases. Heart regular rate and rhythm. No murmur gallop. Abdomen is protuberant. Soft. Doesnt appeared to be distended. Alert and cooperative. Objective Labs Result Diagrams: 09/21/18 05:22 09/21/18 05:22 Assessment & Plan Assessment & Plan narrative: Small bowel obstruction. Appears to have resolved. Will advance to regular diet. If tolerated can be discharged in the morning. Quality VTE Deep Vein Thrombosis/Pulmonary Embolism Present on Admission: No
--- NOTE | 2018-09-23 13:39 | CM.DPC ---
Addendum entered by Barbara Odom LPN 09/23/18 13:51: Did clarify for pt that the hospital provided the taxi ride but not the ferry fare. She said that was fine, she just had been told by a staff member here that this was provided. She said she has been here before and thus was surprised. Will check in with her tomorrow and assist in this process if she is d/c'd. Pt also clarifies that she is now retired and no longer works at the [employer]. Her insurance is now [employer], not [employer] as per the face sheet although did confirm it is the same policy #. Original Note: DCP: continued: Case received, EMR reviewed and met with pt. Introduced self and role. Pt expresses elation that she is getting better so quickly. Dr. Dye was here earlier today and has advanced her diet. She says the food for lunch is great but she is stopping at about half of it, I think I should pace myself. Since last evening she has been up mobilizing in the halls. She is hopeful she will be ok to go home tomorrow. Asked about her transport plan. She says it is difficult organizing someone to pick her up as she lives on [facility] and without a certain d/c date and time it is hard to coordinate, especially in the summer. She says she has many people that will be supporting her once she gets home but she is planning to take the taxi provided by to the ferry and then walk on. She says at this point she feels very able to do this.
--- NOTE | 2018-09-23 20:26 | PC.NURSE ---
Pt ate 50% pasta/chicken dinner, drinking fluids and hot carline. Denies pain, ABD soft non temder, BT+, denies nausea. Indep ambulating hallways often. No concerns or needs at this time.
[2018-09-24 04:06] VITALS: BP 145/82; PULSE 76; RESP 16; TEMP 36.8; O2SAT 98
--- NOTE | 2018-09-24 04:46 | PC.NURSE ---
Pt doing very well. No complaints of pain or nausea. Frequently ambulating. A little bit hypertensive, asymptomatic. Tolerating her regular diet; stated she ate a good lunch and had no issues, then just didn't have much of an appetite for dinner.
--- NOTE | 2018-09-24 08:18 | PM.DS.1 ---
History of Present Illness Date Patient Seen: 09/24/18 Time Patient Seen: 08:32 Chief complaint: Small Bowel Obstruction Narrative: Ms. Stephani Pearson is a 60-year-old female patient with history significant for left nephrectomy hysterectomy and lumbosacral degenerative disc disease who presented to [facility] and [place] with progressive nausea vomiting. The patient reports developing nausea and vomiting the afternoon of 09/19/2018 that became progressively worse. She attributed her distress to the broccoli she ate and has been unable to keep down any food or fluids. She has developed mild abdominal pain with bloating and fullness. She describes the pain as a dull ache and pressure that is crampy at times. She reports taking MiraLax without benefit. She reports over the last 2 days she has had very small bowel movement and none today. She reports no hematemesis melena rectal bleeding. The patient reports no recent illness and denies fevers or chills, headaches or dizziness, nasal congestion or sore throat. She does endorse having multiple episodes of chest pressure when walking up hill with shortness of breath but none with normal activity that has developed over the last few weeks. She denies peripheral edema or orthopnea and otherwise has no shortness of breath cough or wheezing. Until today she has had no recent abdominal pain and no complaints of constipation or diarrhea. She reports no dysuria or vaginal bleeding or discharge. The patient was seen at [facility] emergency department of [place], upon arrival the patient had a blood pressure 134/90 with normal terminal with a temperature 37.1?, heart rate of 110, respirations of 18 and oxygen saturation 95%. Given the clinic included a CT scan which found, fluid dilated and fecalized proximal small bowel loops with abrupt transition point in the anterior left abdomen at the level of the umbilicus. Lab work obtained found white count of 9.5, hemoglobin of 15 and hematocrit of 45.8 and platelets of 230. With complaint of chest pressure on exertion a troponin was checked and found to be negative at less than 0.010. On chemistries her electrolytes within normal limits and had a nonfasting glucose 142. She has preserved renal function with a BUN of 17 and creatinine of 0.7. Her LFTs are within normal limits. And lipase is 27. Twelve lead EKG was obtained which found a normal sinus rhythm with a bifascicular block with right bundle branch block and left anterior fascicular block. She has no ST-elevation however there is inverted T-waves in V1 [address] Du called requesting to transfer the patient to [facility] as they have no surgical services. The patient is accepted with surgical consult for which Dr. Du spoke with Dr. Toribio the litigation claim representative surgeon who agreed to consult and agreed with transfer. The patient was given Reglan at the sending facility without benefit, she received Zofran during transport with marked improvement in her nausea Discharge Providers Date of admission: 09/20/18 00:08 Discharge Date: 09/24/18 Primary care physician: Arline Reid MD Consults: 09/20/18 00:26 Consult to Discharge Planning Routine Comment: Consult to Physician Routine Comment: Consulting Provider: Libia Toribio Reason for consultation: Bowel obstruction, contacted by Dr. Du, [facility] Has provider been notified: Yes Discharge provider: Goldy Dominguez MD Summary Discharge Diagnosis: 1. Acute small-bowel obstruction, likely due to adhesion, present on admission. 2. Acute chest discomfort, active Hospital Course: 1. Acute small-bowel obstruction, likely due to adhesion, present on admission. -she was treated with bowel rest, IV fluids and then progressive resumption of oral intake. -resolved and tolerating regular diet. Discharged today per surgeries recommendations. -follow up with primary care soon 2. Acute chest discomfort, active -patient reported 2 week history of a couple episodes of chest discomfort with exertion when she does a strenuous walk uphill. -patient acknowledges difficulty going up stairs both related to her hip as well as dyspnea. -no significant CAD risk factors such as family history, diabetes, hypertension, smoking (quit 30-40 years ago) -Twelve lead EKG finds bifascicular block and inverted T-waves in V1 2 and 3. -troponin at [facility] and here both negative -transthoracic echo is normal -patient informed she will need outpatient cardiac workup with stress test, to be arranged through primary care. Exam Vital Signs (past 8 hours): - 09/24/18 04:06 Temperature 98.3 F Pulse Rate 76 Respiratory Rate 16 Blood Pressure 145/82 H Pulse Oximetry 98 Oxygen Delivery Method Room Air Oxygen Flow Rate 0 Narrative Exam Narrative: She is alert and oriented x3, in no apparent distress. She is tolerating her regular diet quite well since yesterday. There is no abdominal pain or nausea. Heart is regular rate and rhythm without murmur. Abdomen is soft, bowel sounds positive, obese, nontender, not distended. Objective Labs Result Diagrams: 09/21/18 05:22 09/21/18 05:22 Discharge Plan Discharge Plan Patient Disposition: Home Discharge comment: Follow up with your PCP, Dr. Reid, as soon as possible. We recommend a cardiac stress test because you had chest pressure. Discharge Med Rec/Prescriptions Prescriptions: No Action No Known Home Medications RF: 0 Follow up/Referrals: Arline Reid MD [Primary Care Provider] - Provider Discharge Instructions Diet: Regular Visit Report/Discharge Packet Instructions: DI for Small Bowel Obstruction Discharge Data Primary Care Provider: Arline Reid Attending Provider: Noah Fowler Admmoira Date/Time: 09/20/18 00:08 Quality VTE Deep Vein Thrombosis/Pulmonary Embolism Present on Admission: No
[2018-09-24 08:59] VITALS: O2SAT 98
[2018-09-24 09:00] VITALS: BP 134/57; PULSE 97; RESP 16; TEMP 36.6; O2SAT 99
--- NOTE | 2018-09-24 09:01 | CM.DPC ---
DCP: continued: pt now with a d/c to home order. Spoke with her in followup as per plan; found her up at sink getting ready to go. She is taking the [address] to [place] and says leaving here at 1100 will be ideal timing. She will be walking on. Edy Telma is now called/pd for by as is transport to [facility]: will be at the ER entrance to pick pt up. PETRA Knapp and pt are updated. LAURE #2: pt gives verbal acknowledge while she is getting ready. She notes she is very eager to get back home.
--- NOTE | 2018-09-24 10:10 | PM.PN.1 ---
Subjective Date Patient Seen: 09/24/18 Time Patient Seen: 10:00 Interval history: Patient is feeling good. She had a little bit of discomfort last night after eating but found that drinking tea cleared out her systems she feels entirely normal today. She is eating a general diet. Exam Vital Signs (past 8 hours): - 09/24/18 04:06 09/24/18 08:59 09/24/18 09:00 Temperature 98.3 F 97.9 F Pulse Rate 76 97 H Respiratory Rate 16 16 Blood Pressure 145/82 H 134/57 L Pulse Oximetry 98 98 99 Oxygen Delivery Method Room Air Oxygen Flow Rate 0 Narrative Exam Narrative: Alert and oriented. Abdomen is protuberant soft. No guarding. No tenderness. No distension. Objective Labs Result Diagrams: 09/21/18 05:22 09/21/18 05:22 Assessment & Plan Assessment & Plan narrative: Doing well. Can probably be discharged to follow up with her primary care provider. Patient was advised to avoid large amount of 1 kind of vegetable at a time. She should avoid vegetables that are fairly into adjustable like Kale. She should chew her food well prior to swallowing. Return if problems develop Quality VTE Deep Vein Thrombosis/Pulmonary Embolism Present on Admission: No
--- NOTE | 2018-09-24 10:29 | PC.NURSE ---
Pt dressed and ready for discharge home. Reviewed d/c instructions-small meals - chew well, stroke education and follow up with Dr. Reid as soon as possible. Pt denies further questions and is ready to be taken out via w/c by HOB[employer] MACHINE OPERATOR to ER entrance for taxi ride to [place] and on to home. All belongings packed up and will be taken with Pt.
== END 2018-09-24 10:49 | disposition home or self-care (01) | DRG 389 ==
PROVIDERS: Internal Medicine; Admitting Provider Nurse Practitioner Adult Health; Family Provider Family Medicine Geriatric Medicine; PCP Family Medicine Geriatric Medicine; Visit Provider Nurse Practitioner Adult Health
DX: K56.609 Unspecified intestinal obstruction, unspecified as to partial versus complete obstruction (principal); I45.2 Bifascicular block; I44.4 Left anterior fascicular block; R06.00 Dyspnea, unspecified; Z87.891 Personal history of nicotine dependence
CPT/HCPCS: 36415; 71045; 74019; 80048; 80053; 84484; 85025; 93005; 93306; 99231; 99232; G0379; J1170; J1650; J2405